=== PATIENT | male | born 1950 | race Caucasian/White ===

== ENCOUNTER 2020-11-03 13:55 | Observation (INO) ==
[2020-11-03] MEDS ORDERED: ONDANSETRON 4 MG/2 ML VIAL IV PRN (15:01)
[2020-11-03] MEDS ORDERED: GLUCAGON 1 MG VIAL IM PRN (15:01)
[2020-11-03] MEDS ORDERED: DEXTROSE 50% 25 GM/50 ML VIAL IV PRN (15:01)
[2020-11-03] MEDS: INSULIN LISPRO 100 UNIT/ML SUBCUT SCH ×2 (15:55→21:36)
[2020-11-03 16:43] LABS: INR 2.5
[2020-11-03 16:49] LABS: Alanine Aminotransferase 16 U/L (16-61); Albumin 3.1 G/DL (3.4-5.0); Alkaline Phosphatase 70 U/L (45-117); Aspartate Amino Transferase 15 U/L (0-37); Bilirubin,Total < 0.39 MG/DL (0.2-1.0); Blood Urea Nitrogen 14 MG/DL (7-18); Calcium 8.8 MG/DL (8.5-10.1); Carbon Dioxide 28 MMOL/L (21-32); Estimated Glom Filtration Rate 107 ML/MIN; Glucose 118 MG/DL (74-106); Osmolality,Calculated 269.2 MOS/KG (273-304); Potassium 3.8 MMOL/L (3.5-5.1); Sodium 134 MMOL/L (136-145); Total Protein 7.5 G/DL (6.4-8.2)
[2020-11-03 17:01] LABS: PT Patient Result 26.3 SECS (10.5-12.0)
[2020-11-03] MEDS ORDERED: WARFARIN 2.5 MG TABLET PO SCH (17:30)
[2020-11-03] MEDS: SODIUM CHLORIDE 0.45% 1,000 ML IV SCH (17:32)
[2020-11-03] MEDS: cefTRIAXone 1,000 MG in SODIUM CHLORIDE 0.9% 100 ML IV SCH (17:32)
[2020-11-03] MEDS: ESCITALOPRAM 10 MG TABLET PO SCH ×2 (21:38→21:52)
[2020-11-03] MEDS: DOCUSATE SODIUM 100 MG CAPSULE PO SCH ×2 (21:38→21:51)
[2020-11-03] MEDS: DILTIAZEM CD 120 MG CAPSULE PO SCH (21:38)
[2020-11-03] MEDS: metFORMIN 500 MG TABLET PO SCH (21:47)
[2020-11-03] MEDS: SIMVASTATIN 20 MG TABLET PO SCH (21:47)
[2020-11-03] MEDS: ACETAMINOPHEN 325 MG TABLET PO PRN (21:49)
[2020-11-04] MEDS: ACETAMINOPHEN 325 MG TABLET PO PRN ×2 (05:37→17:24)
[2020-11-04] MEDS: PANTOPRAZOLE 40 MG TABLET PO SCH (05:37)
[2020-11-04 05:46] LABS: Basophils # 0.1 10*3/uL (0.0-0.2); Basophils % 0.8 % (0.0-0.8); Eosinophils # 0.2 10*3/uL (0.0-0.87); Eosinophils % 2.8 % (0.00-10.9); Hemoglobin 9.9 GM/DL (14.0-18.0); Immature Granulocytes % 0.6 %; Immature Granulocytes Absolute 0.05 #; Lymphocytes # 1.3 10*3/uL (1.4-4.0); Lymphocytes % 15.9 % (21.2-54.2); Mean Corpuscular HGB Conc 31.9 GM/DL (32-36); Mean Corpuscular Volume 89.9 FL (87-102); Mean Platelet Volume 9.7 FL (9.6-12.0); Monocytes % 12.3 % (1.7-12.7); Neutrophils % 67.6 % (38.7-73.9); Platelet Count 320 T/CUMM (130-400); Red Blood Count 3.45 MC/CUMM (3.8-5.5); Red Cell Distribution Width 13.1 % (9.3-17.3); White Blood Count 7.9 T/CUMM (4-12)
[2020-11-04] MEDS: SODIUM CHLORIDE 0.45% 1,000 ML IV SCH (08:42)
[2020-11-04] MEDS: INSULIN LISPRO 100 UNIT/ML SUBCUT SCH ×4 (08:43→21:05)
[2020-11-04] MEDS ORDERED: NON-FORMULARY MEDICATION (Omeprazole 20 MG capsule,delayed release(DR/EC)) PO SCH (09:00)
[2020-11-04] MEDS: MAGNESIUM CHLORIDE 64 MG TABLET PO SCH (10:40)
[2020-11-04] MEDS: metFORMIN 500 MG TABLET PO SCH ×2 (10:40→17:03)
[2020-11-04] MEDS: GLIMEPIRIDE 2 MG TABLET PO SCH (10:40)
[2020-11-04] MEDS: CHOLECALCIFEROL 5,000 UNIT TABLET PO SCH (10:40)
[2020-11-04] MEDS: ESCITALOPRAM 10 MG TABLET PO SCH (10:40)
[2020-11-04] MEDS: DOCUSATE SODIUM 100 MG CAPSULE PO SCH ×2 (10:41→21:05)
[2020-11-04] MEDS: DILTIAZEM CD 120 MG CAPSULE PO SCH ×2 (10:41→21:04)
[2020-11-04] MEDS: DIGOXIN 0.25 MG TABLET PO SCH (10:41)
[2020-11-04] MEDS: ASPIRIN EC 81 MG TABLET PO SCH (10:41)
[2020-11-04] MEDS ORDERED: WARFARIN 5 MG TABLET PO SCH (17:00)
[2020-11-04] MEDS: cefTRIAXone 1,000 MG in SODIUM CHLORIDE 0.9% 100 ML IV SCH (17:04)
[2020-11-04] MEDS: SIMVASTATIN 20 MG TABLET PO SCH (21:04)
[2020-11-04] MEDS ORDERED: ZALEPLON 5 MG CAPSULE PO PRN (21:10)
[2020-11-05] MEDS: SODIUM CHLORIDE 0.45% 1,000 ML IV SCH ×2 (02:33→08:48)
[2020-11-05] MEDS: ACETAMINOPHEN 325 MG TABLET PO PRN (03:29)
[2020-11-05] MEDS: PANTOPRAZOLE 40 MG TABLET PO SCH (05:46)
[2020-11-05 07:30] VITALS: BP 125/64
[2020-11-05] MEDS: INSULIN LISPRO 100 UNIT/ML SUBCUT SCH (08:27)
[2020-11-05] MEDS: DILTIAZEM CD 120 MG CAPSULE PO SCH (08:41)
[2020-11-05] MEDS: DOCUSATE SODIUM 100 MG CAPSULE PO SCH (08:41)
[2020-11-05] MEDS: DIGOXIN 0.25 MG TABLET PO SCH (08:41)
[2020-11-05] MEDS: ASPIRIN EC 81 MG TABLET PO SCH (08:41)
[2020-11-05] MEDS: CHOLECALCIFEROL 5,000 UNIT TABLET PO SCH (08:41)
[2020-11-05] MEDS: MAGNESIUM CHLORIDE 64 MG TABLET PO SCH (08:41)
[2020-11-05] MEDS: GLIMEPIRIDE 2 MG TABLET PO SCH (08:41)
[2020-11-05] MEDS: ESCITALOPRAM 10 MG TABLET PO SCH (08:42)
[2020-11-05] MEDS: metFORMIN 500 MG TABLET PO SCH (08:42)
[2020-11-05] MEDS: cefTRIAXone 1,000 MG in SODIUM CHLORIDE 0.9% 100 ML IV SCH (08:49)
[2020-11-09] MEDS ORDERED: WARFARIN 2.5 MG TABLET PO SCH (17:00)
== END 2020-11-05 09:48 | disposition home or self-care (01) ==
LOC: N.5E
PROVIDERS: ADMIT Family Medicine; ATTEND Family Medicine